=== PATIENT | female | born 1990 | race Caucasian/White ===

== ENCOUNTER 2024-04-02 09:11 | Outpatient (AMB) | payer OTHER, SELFPAY ==
--- NOTE | 2024-04-02 09:14 | MHC.PC.OV ---
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 Intake Note: new patient to [facility] Scanning Coordinator Required: No Allergies No Known Allergies Allergy (Verified 04/02/24 09:15) Tobacco use date assessed: 04/02/24 Dental Screening Dental Screen Date: 04/02/24 Did you have a dental visit in the last 12 months?: Yes Did you have a dental problem in the last 6 months where you did not have access to dental care?: No Was dental information given to patient?: Patient has dentist HPI HPI Comments History of Present Illness Details This is a 33-year-old female with a past medical history of chronic pain, chronic fatigue, migraine headaches, stress and obesity presenting to [facility]. She transferred from [facility] primary care where she saw Dr. Barragan. Her records have not been transferred yet. The patient's primary concern today is chronic pain and chronic fatigue. This began 6 years ago. She went to the [facility] treatment center a couple of years ago. She reports that some of her lab evaluation there was abnormal, but it was not followed up on, and they never made a diagnosis. She would like a referral to Rheumatology for a 2nd opinion. Patient recalls that 1 of the abnormal tests was an elevated white blood cell count. The patient says the intensity of her pain fluctuates, but she is in some discomfort every day. It affects her back and her arms and her legs. She has rare tingling associated with this in her upper back. She sees a chiropractor every month which helps somewhat. When asked about weakness in her extremities she said that she does not do the dishes anymore because she broke a lof of dishes and dropped them. She says this does not happen frequently however. 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 She has a history of chronic headaches and migraines. She is followed at [facility]. She was receiving Botox for migraines which was very effective, but due to recent financial changes she has not been getting them. She also has to meet with a new neurologist because her neurologist left the practice. She is prescribed rizatriptan and Aleve as needed which is effective to abort migraines. She endorses transient blurry vision that occurs sometimes with migraines. Patient says stress and sleep most likely are factoring into some of her symptoms. She is under a lot of stress. She sees a therapist monthly. 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 Her has been out of work for the past 6 months. She says that even when she sleeps 6-8 hours, she always feels tired. She also reports snoring. Denies witnessed apneic episodes. She has a history of asthma which was more prevalent as a child. She received allergy injections now and uses albuterol as needed. She carries an EpiPen because she has a history of a poultry allergy, but she outgrew it. She is a nonsmoker. She drinks a couple of alcoholic beverages per year. No illicit drug use. She has had a history of low vitamin-D. Past treatments include duloxetine in 2017 which made her feel like a zombie. Patient's father has CMT. No known fam hx of MS. ROS: Constitutional: No unexplained weight loss, fever, chills or night sweats. Eyes: No vision changes, double vision, eye pain, eye redness, eye discharge. Respiratory: No shortness of breath, cough or sputum production. Cardiovascular: No chest pain, chest pressure or chest discomfort. No palpitations or pedal edema. Gastrointestinal: No anorexia, nausea, vomiting or diarrhea. No abdominal pain or blood in stool. Neurologic: No memory loss, blackouts, seizures. See HPI Musculoskeletal: see HPI Hematologic/Lymphatics: No bleeding or bruising. No painful lymph nodes. Skin: No rash Endocrine: No cold or heat intolerance. No polyuria or polydipsia. Psychiatric: No SI/HI. Physical exam: Constitutional: Alert, in no distress. Eyes: Pupils are equal, round and reactive to light. Extraocular muscles intact. Neck: Supple, Full range of motion. No lymphadenopathy. No palpable thyroid masses. Respiratory: Clear to auscultation. Cardiovascular: S1 S2 regular. No murmurs Gastrointestinal: Abdomen soft, non-tender, non-distended. Normal bowel sounds. No palpable masses. Neurologic:?Alert and oriented x 3, no focal deficits observed, CN 2-12 intact, [id number] normal, sensation equal and symmetric, strength UE and LE 5/5 bilaterally, reflexes equal and symmetric.? Normal gait.? Patient able to heel walk, toe walk and walk heel-to-toe across the floor.? No pronator drift.? Negative Romberg. Skin: No rashes Musculoskeletal: No gross deformities. Normal range of motion. Extremities: Warm and well perfused. No clubbing, cyanosis or edema. 3+ peripheral pulses bilaterally. Psychiatric: Normal mood and affect [facility] Medical History (Updated 04/02/24 @ 13:45 by STEPHAN Torres) Screening for cardiovascular condition Snoring Anxiety Chronic fatigue Non-restorative sleep Chronic pain Migraines IBS (irritable bowel syndrome) Asthma Anxiety and depression Diverticulosis Surgical History (Updated 04/02/24 @ 09:23 by Zaid Franco MA) History of removal of cyst Family History (Updated 04/02/24 @ 09:23 by Zaid Franco MA) Father Mental health disorder Diabetes Hypertension High cholesterol Cardiovascular disease Charcot-Alexus disease Paternal Uncle Substance abuse Cancer Paternal Grandmother Cancer Paternal Grandfather Cancer Paternal Aunt Cancer Sister Diabetes Hypertension Social History (Updated 04/02/24 @ 09:20 by Zaid Franco MA) Household Members: Spouse Both parents involved: No Caregiver staying overnight: No Housing: House Are you a primary physician assistant primary care to a significant other at home: No Do you presently have visiting nurse or other home services: No 75 years or older and lives alone: No Alcohol intake: current Alcohol intake frequency: a few times a month Patient Tobacco Use Status: Never used Tobacco e-Cigarette/Vaping Use: Never Used Second Hand Smoke Exposure: No Current occupational status: employed Current occupation: director of marketing [employer] Cognitive needs: No Hearing needs: No Vision needs: Yes (wear glasses) Questionnaire PHQ-9 Over the last 2 weeks, how often have you been bothered by any of the following problems? 1. Little interest or pleasure in doing things: not at all 2. Feeling down, depressed, or hopeless: several days 3. Trouble falling or staying asleep, or sleeping too much: several days 4. Feeling tired or having little energy: nearly every day 5. Poor appetite or overeating: not at all 6. Feeling bad about yourself - or that you are a failure or have let yourself or your family down: not at all 7. Trouble concentrating on things, such as reading the newspaper or watching television: not at all 8. Moving or speaking so slowly that other people could have noticed. Or the opposite - being so fidgety or restless that you have been moving around a lot more than usual: not at all 9. Thoughts that you would be better off or of hurting yourself in some way: not at all Total score: 5 16336 - PHQ-9 Billing: Yes Source: Developed by Drs. Omid Polo, Yvette Dickson, Bruce Leon and colleagues, with an educational kenan from [employer]. Thrive Questionnaire Date Thrive assessed: 04/02/24 I am a: Patient What is your living situation today?: I have a steady place to live Within the past 12 months, did the food you bought not last and you didn't have the money to get more?: Never true Within the past 12 months, did you worry whether your food would run out before you got money to buy more?: Never true Do you have trouble paying for medicines?: I choose not to answer this question Do you have trouble getting transportation to medical appointments?: No Do you have trouble paying your heating and electricity bill?: No Do you have trouble taking care of your child, family member or friend?: No Do you have trouble with day-to-day activities such as bathing, preparing meals, shopping, managing finances, etc.?: No Are you currently unemployed and looking for a job?: No Are you interested in more education?: No Please select the resources that you would like help with: None Currently or been in a relationship where the following occur: No concerns reported THRIVE Score: 0 AUDIT C Alcohol Use Questionnaire (AUDIT-C) 1. How often do you have a drink containing alcohol?: Monthly or less 2. How many drinks containing alcohol do you have on a typical day when you are drinking?: 1 or 2 3. How often do you have six or more drinks on one occasion?: Never Total Score: 1 RADHA-7 AMB Questionnaire RADHA-7 Date RADHA - 7 assessed: 04/02/24 Feeling nervous, anxious, or on edge: 1 = Several days Not being able to stop or control worryin = Several days Worrying too much about different things: 1 = Several days Trouble relaxin = Several days Being so restless that it is hard to sit still: 1 = Several days Becoming easily annoyed or irritable: 1 = Several days Feeling afraid as if something awful might happen: 1 = Several days Total RADHA-7 score (0-4 normal; 5-9 mild; 10-14 moderate; 15-21 severe): 7 Source: Developed by Drs. Omid Polo, Yvette Dickson, Bruce Leon and colleagues, with an educational kenan from [employer]. RADHA-7 Assessment Billing RADHA-7 Assessment Tool: RADHA-7 Assessment 64095 Physical exam (Primary Care) Vital Signs: Last Vital Signs Temp 97.7 F 04/02/24 09:24 Pulse 90 04/02/24 09:24 Resp 13 04/02/24 09:24 BP 136/73 04/02/24 09:24 Pulse Ox 98 04/02/24 09:24 Oxygen Delivery Method Room Air 04/02/24 09:24 BMI result Body Mass Index 39.5 Tobacco/Smoking Status: Tobacco use Status Tobacco use date assessed 04/02/24 04/02/24 09:27 Patient Tobacco Use Status Never used Tobacco 04/02/24 09:27 e-Cigarette/Vaping Use Never Used 04/02/24 09:27 PHQ-9: PHQ-9 Score PHQ-9: Total score 5 04/02/24 09:34 Thrive Assessment: Date of Thrive Assessment Date Thrive assessed 04/02/24 04/02/24 09:16 Currently or been in a relationship where the following occur: No concerns reported Coding Level of Care Code New Pt Level 5 (95495) Complex EM visit Add On G2211 Diagnoses Chronic pain G89.29 Non-restorative sleep G47.8 Chronic fatigue R53.82 Anxiety F41.9 Asthma J45.909 Migraines G43.909 Additional Codes RADHA-7 Assessment Billing - RADHA-7 Assessment Tool: RADAH-7 Assessment 34091 ([id number]) PHQ-9 - 95875 - PHQ-9 Billing: Yes ([id number]) Time Spent (min) 65 Comment Direct patient care and completing documentation Assessment & Plan Assessment & Plan (1) Chronic pain: Code(s): G89.29 - Other chronic pain Category: Medical Plan: There is a long differential which includes fibromyalgia, SLE, osteoarthritis, Lyme. Labs ordered today. Referred to Dermatology at [facility]. (2) Non-restorative sleep: Code(s): G47.8 - Other sleep disorders Category: Medical Plan: Sleep study ordered. (3) Chronic fatigue: Code(s): R53.82 - Chronic fatigue, unspecified Category: Medical Plan: We discussed there is a long differential. She definitely needs a sleep study given non restorative sleep, snoring, chronic fatigue and chronic headaches. This is ordered. I will also refer her to Rheumatology at [facility] for a 2nd opinion and we ordered extensive labs today. Proper nutrition, exercise and treatment of underlying anxiety and stress all important. I will request the records from neuroimaging at [facility]. We also discussed MS is on the differential. She is going to have an appointment with a new neurologist, I encouraged her to bring up all of the symptoms. I also think she should have an MRI if this is not in the records from [facility]. She wanted to hold off on ordering it for now. (4) Anxiety: Code(s): F41.9 - Anxiety disorder, unspecified Category: Medical Plan: Patient is seeing a therapist. We discussed medications for anxiety, and we will discuss this further at follow up. She is not completely opposed but she is concerned about side effects because of the experience with Cymbalta. (5) Asthma: Code(s): J45.909 - Unspecified asthma, uncomplicated Category: Medical Plan: Continue albuterol as needed. Followed by Allergy and immunology. (6) Migraines: Code(s): G43.909 - Migraine, unspecified, not intractable, without status migrainosus Category: Medical Plan: Migraine prevention reviewed. She has rizatriptan and Aleve as needed for migraines. She is going to follow up with a new neurologist to discuss alternatives of Botox. Orders: Orders RT home sleep study Today G47.8 - Other sleep disorders, R06.83 - Snoring, R53.82 - Chronic fatigue, unspecified UA w Microscopic Today F41.9 - Anxiety disorder, unspecified, G43.909 - Migraine, unspecified, not intractable, without status migrainosus, G47.8 - Other sleep disorders, G89.29 - Other chronic pain, R06.83 - Snoring, R39.9 - Unspecified symptoms and signs involving the genitourinary system, R53.82 - Chronic fatigue, unspecified Vitamin D 25-OH (D2 and D3) Today F41.9 - Anxiety disorder, unspecified, G43.909 - Migraine, unspecified, not intractable, without status migrainosus, G47.8 - Other sleep disorders, G89.29 - Other chronic pain, M85.80 - Other specified disorders of bone density and structure, unspecified site, R06.83 - Snoring, R53.82 - Chronic fatigue, unspecified TSH reflex Free T4 Today F41.9 - Anxiety disorder, unspecified, G43.909 - Migraine, unspecified, not intractable, without status migrainosus, G47.8 - Other sleep disorders, G89.29 - Other chronic pain, R06.83 - Snoring, R53.82 - Chronic fatigue, unspecified Magnesium Today F41.9 - Anxiety disorder, unspecified, G43.909 - Migraine, unspecified, not intractable, without status migrainosus, G47.8 - Other sleep disorders, G89.29 - Other chronic pain, R06.83 - Snoring, R53.82 - Chronic fatigue, unspecified IRON PROFILE Today F41.9 - Anxiety disorder, unspecified, G43.909 - Migraine, unspecified, not intractable, without status migrainosus, G47.8 - Other sleep disorders, G89.29 - Other chronic pain, R06.83 - Snoring, R53.82 - Chronic fatigue, unspecified Cortisol Random Today F41.9 - Anxiety disorder, unspecified, G43.909 - Migraine, unspecified, not intractable, without status migrainosus, G47.8 - Other sleep disorders, G89.29 - Other chronic pain, R06.83 - Snoring, R53.82 - Chronic fatigue, unspecified Lyme IgG/IgM w/reflex to WB Today F41.9 - Anxiety disorder, unspecified, G43.909 - Migraine, unspecified, not intractable, without status migrainosus, G47.8 - Other sleep disorders, G89.29 - Other chronic pain, R06.83 - Snoring, R53.82 - Chronic fatigue, unspecified C Reactive Protein Today F41.9 - Anxiety disorder, unspecified, G43.909 - Migraine, unspecified, not intractable, without status migrainosus, G47.8 - Other sleep disorders, G89.29 - Other chronic pain, R06.83 - Snoring, R53.82 - Chronic fatigue, unspecified Vitamin B12 and Folate Today F41.9 - Anxiety disorder, unspecified, G43.909 - Migraine, unspecified, not intractable, without status migrainosus, G47.8 - Other sleep disorders, G89.29 - Other chronic pain, R06.83 - Snoring, R53.82 - Chronic fatigue, unspecified Lipid Panel Today F41.9 - Anxiety disorder, unspecified, G43.909 - Migraine, unspecified, not intractable, without status migrainosus, G47.8 - Other sleep disorders, G89.29 - Other chronic pain, R06.83 - Snoring, R53.82 - Chronic fatigue, unspecified, Z13.6 - Encounter for screening for cardiovascular disorders Comprehensive Met. Panel Today F41.9 - Anxiety disorder, unspecified, G43.909 - Migraine, unspecified, not intractable, without status migrainosus, G47.8 - Other sleep disorders, G89.29 - Other chronic pain, R06.83 - Snoring, R53.82 - Chronic fatigue, unspecified Complete Blood Count Auto Diff Today F41.9 - Anxiety disorder, unspecified, G43.909 - Migraine, unspecified, not intractable, without status migrainosus, G47.8 - Other sleep disorders, G89.29 - Other chronic pain, R06.83 - Snoring, R53.82 - Chronic fatigue, unspecified Urine Culture Today F41.9 - Anxiety disorder, unspecified, G43.909 - Migraine, unspecified, not intractable, without status migrainosus, G47.8 - Other sleep disorders, G89.29 - Other chronic pain, R06.83 - Snoring, R39.9 - Unspecified symptoms and signs involving the genitourinary system, R53.82 - Chronic fatigue, unspecified Ferritin Today F41.9 - Anxiety disorder, unspecified, G43.909 - Migraine, unspecified, not intractable, without status migrainosus, G47.8 - Other sleep disorders, G89.29 - Other chronic pain, R06.83 - Snoring, R53.82 - Chronic fatigue, unspecified BRIGHT Reflex Titer and Pattern Today F41.9 - Anxiety disorder, unspecified, G43.909 - Migraine, unspecified, not intractable, without status migrainosus, G47.8 - Other sleep disorders, G89.29 - Other chronic pain, R06.83 - Snoring, R53.82 - Chronic fatigue, unspecified Rheumatoid Factor Today F41.9 - Anxiety disorder, unspecified, G43.909 - Migraine, unspecified, not intractable, without status migrainosus, G47.8 - Other sleep disorders, G89.29 - Other chronic pain, R06.83 - Snoring, R53.82 - Chronic fatigue, unspecified Referrals Rheumatology Referral G89.29 - Other chronic pain, R53.82 - Chronic fatigue, unspecified
[2024-04-02 09:24] VITALS: BP 136/73; PULSE 90; RESP 13; TEMP 36.5; O2SAT 98; BMI 39.5
--- OUTSIDE RECORDS SUMMARY | 2024-04-02 12:14 | XMS_ITS | Clinical Summary ---
Author Organization [facility] Address [address] [place] [address] Care Team Providers Care Senior Dentist Name Role Phone Unavailable Primary Care Provider Unavailabl e Social History Tobacco Use Types Packs/Day Years Used Date Smoking Tobacco: Never Assessed Sex and Gender Information Value Date Recorded Sex Assigned at Not on file Gender Identity Not on file Sexual Orientation Not on file Plan of Treatment Health Maintenance Due Date Last Done Comments DTaP,Tdap,and Td Vaccines (1 - Tdap) 10/19/2010 Hepatitis B Vaccines (1 of 3 - 19+ 3-dose series) 10/19/2010 Cervical Cancer Screening: P ap Smear 10/19/2012 Depression Screening 03/28/2023 HIV Screening 03/28/2023 Hepatitis C Screening 03/28/2023 Social Influencers of Health Screening 03/28/2023 COVID-19 Vaccine ( - 2023-2 5 season) 2023 Influenza Vaccine (#1) 2023 HIB Vaccines Aged Out No longer eligi ble based on patient's age to complete this topic HPV Vaccines Aged Out No longer eligi ble based on patient's age to complete this topic Hepatitis A Vaccines Aged Out No long er eligible based on patient's age to complete this topic IPV Vaccines Aged Out No longer eligi ble based on patient's age to complete this topic MMR Vaccines Aged Out No longer eligi ble based on patient's age to complete this topic Meningococcal ACWY Vaccine Aged Out N o longer eligible based on patient's age to complete this topic Pneumococcal Vaccine: Pediat rics (0 to 5 Years) and At-Risk Patients (6 to 64 Years) Aged Out No longer eligible b ased on patient's age to complete this topic RSV Immunization Patients Un mark 20 months Aged Out No longer eligible b ased on patient's age to complete this topic Varicella Vaccines Aged Out No longer eligible based on patient's age to complete this topic
== END 2024-04-02 09:56 | disposition home or self-care (01) ==
PROVIDERS: PCP Physician Assistant Medical; Visit Provider Physician Assistant Medical
DX: G89.29 Other chronic pain (principal); G47.8 Other sleep disorders; R53.82 Chronic fatigue, unspecified; F41.9 Anxiety disorder, unspecified; J45.909 Unspecified asthma, uncomplicated; G43.909 Migraine, unspecified, not intractable, without status migrainosus

== ENCOUNTER → 2024-04-02 09:11 | Outpatient (BNVA) | payer OTHER, SELFPAY | PROVIDERS: PCP Physician Assistant Medical; Visit Provider Physician Assistant Medical | DX: G89.29 Other chronic pain (principal); G47.8 Other sleep disorders; R53.82 Chronic fatigue, unspecified; F41.9 Anxiety disorder, unspecified; J45.909 Unspecified asthma, uncomplicated; G43.909 Migraine, unspecified, not intractable, without status migrainosus | CPT/HCPCS: 96127 ==

== ENCOUNTER 2024-04-10 10:46 | Outpatient (REF) | payer OTHER, SELFPAY ==
[2024-04-10 11:14] LABS: MANUAL DIFF FLAG NO
[2024-04-10 11:35] LABS: Basophils Absolute Auto 0.1 X10*3/uL (0.0-0.2); Basophils Percent Auto 0.7 % (0-2); Eosinophils Absolute Auto 0.2 X10*3/uL (0.0-0.4); Eosinophils Percent Auto 1.8 % (0-4); Hematocrit 38.7 % (37.0-47.0); Hemoglobin 12.7 g/dl (12.0-16.0); Imm Gran Abs Auto 0.05 X10*3/uL (0.00-0.03); Imm Gran Pct Auto 0.5 % (0.0-0.4); Lymphocytes Absolute Auto 2.4 X10*3/uL (1.2-4.9); Lymphocytes Percent Auto 25.7 % (20-40); Mean Corpuscular HGB Conc 32.8 g/dl (31.0-35.0); Mean Corpuscular Hemoglobin 29.5 pg (27.0-33.0); Mean Corpuscular Volume 89.8 fL (80.0-98.0); Mean Platelet Volume 9.2 fL (9.4-12.3); Monocytes Absolute Auto 0.7 X10*3/uL (0.1-1.2); Monocytes Percent Auto 6.9 % (2-11); Neutrophils Absolute Auto 6.1 x10*3/uL (2.0-8.3); Neutrophils Percent Auto 64.4 % (45-73); Platelet Count 447 X10*3/uL (160-400); Red Blood Count 4.31 X10*6/uL (4.20-5.50); Red Cell Distribution Width 12.1 % (11.0-16.0); White Blood Count 9.5 X10*3/uL (4.8-10.8)
--- OUTSIDE RECORDS SUMMARY | 2024-04-10 11:52 | XMS_ITS | Data Portability ---
Author Organization [facility] [employer] Rated People Address [address] [place] [address] Care Team Providers Care Development Specialist Name Role Phone ERIC LISA Primary Care Provider Assessment Encounter Date Assessment Date Assessment LastModified by Organization Details LastModified Time 01/22/2019 01/22/2019 X-rays three views of the right wrist show no fractures dislocations. Minimal degenerative changes were seen. Assessment: De Quervain tenosynovitis right wrist. Some carpal tunnel syndrome. Plan: We will try her with a brace thumb spica. We are going to see her back in the office in 6 weeks. We injected her 1st dorsal compartment today. She tolerated this well. We are going to have her do some therapy. We will re-evaluate her when she returns. west Not available 01/22/2019 08:39:04 03/05/2019 03/05/2019 assessment: Good response to nonoperative treatment for de Quervain tenosynovitis. Plan: We're going to have her continue with home exercise program. We'll have her use the splint if her pain returns. She is going to follow up if her pain returns. At this point we discharged back to normal activities. west Not available 03/05/2019 08:43:18 Plan of Treatment Reminders Order Date Submit Date Provider Last Modified By Organization Details Last Modified Time Details Appointments None recorded. Lab None recorded. Referral physical therapist referral 2018 west Not available 9 17:48:06 Procedures None recorded. Surgeries None recorded. Imaging XR, hand, 3 or more view - room [address] [facility] (Imaging [facility]), [address], [address], [place], [address], 9 17:48:06 Medication Orders None recorded. Patient TargetsNo targets recorded. Patient InstructionsNo instructions recorded. Reason for Referral Physical Therapist Referral for Radial styloid tenosynovitis Referring Physician: Vern Nuno, Orthopedic Surgery, Encounter Date: 01/22/2019 Results Created Date Observation Date Name Description Value Unit Range Abnormal Flag Note LastModifiedBy Organization Detail LastModifiedTime 01/23/2001/22/2019 XR, hand, 3 or more view http:/ [email or web address] [id number]:3582 ?Encry pted=s hAaTro YD8dLq bEUv6g %2BXZw aYqtaq 0bqfl% 2Fg9IQ a4ajBk vP9nXo QUaueC m3YtLR FvZlgJ JJ8mAn HZtai3 5p9392 AC0Kpb X2FUaa uKicnq c0P [facility] (Imaging Center) [address], [place], [address], 01/22/2019 07:42:23 Result Notes None recorded. Problems Name Problem SNOMED Code Status Onset Date Resolution Date Notes Provider Name and Address Organization Details Recorded Time Carpal tunnel syndrome 88806959 Active 2018 Vern Nuno MD [address], [address], [facility] 9 08:40:13 Radial styloid tenosynovitis 95530785 Active 2018 Vern Nuno MD [address], [address], [facility] 9 08:40:17 Problem Notes None recorded. Procedures Surgical History Date Name Laterality Status Provider Name and Address Organization Details Recorded Time 01/23/20 19 Inj Wrist/Elbow Right Betamethasone 86946, J0702, J2001 completed Vern Nuno MD [address] [place], [address], [place] - [facility] 01/22/2019 08:39:40 Imaging Results Imaging Date Name Status LastModified by Organiz ation Details LastModified Time 01/22/2019 XR, hand, 3 or more view completed INTERFACE [facility] (Imaging Center) [address], [place], [address], 01/22/2019 07:42:23 Procedure Notes None recorded. Medical Equipment None Reported. Allergies Allergen ID Allergen Name Allergen Category Reaction Reaction Severity Criticality Documentation Date Start Date Code Code System Note Provider Name and Address Organization Details Recorded Time 90057 sumatript an medicatio n Not available Not available Not available 01/22/2019 99486 RxNorm Not Available Not Available Not Available 87493 gabapenti n medicatio n Not available Not available Not available 01/22/2019 41157 RxNorm Not Available Not Available Not Available Medications Name Sig Start Date Stop Date Status Note LastModified by Organization Details LastModified Time amoxicillin 500 mg capsule 03/05 completed Not Available Not Available Not Available cetirizine 10 mg tablet active Not Available Not Available No t Available ranitidine 300 mg tablet active Not Available Not Available No t Available triamcinolone acetonide 0.1 % topical cream 03/05 completed Not Available Not Available Not Available triamcinolone acetonide 0.025 % topical cream 03/05 completed Not Available Not Available Not Available meclizine 25 mg tablet 03/05 completed Not Available Not Available Not Available gabapentin 100 mg capsule active Not Available Not Available N ot Available epinephrine 0.3 mg/0.3 mL injection, auto-injector active Not Available Not Availabl e Not Available topiramate 100 mg tablet active Not Available Not Available No t Available Sprintec (28) 0.25 mg-35 mcg tablet active Not Available Not Available Not Available Suprep Bowel Prep Kit 17.5 gram-3.13 gram-1.6 gram oral solution 03/05 completed Not Available Not Available Not Available Vitals Date Recorded Body height Body mass index (BMI) Body weight Provider Name and Address Organization Details Last Updated DateTime 01/22/2019 167.64 cm 34.7 kg/m2 47394.36 g Raissa Woodard [facility] 01/22/2019 07:44:51 Date Recorded Body height Body mass index (BMI) Body weight Provider Name and Address Organization Details Last Updated DateTime 03/05/2019 167.64 cm 34.7 kg/m2 06033.36 g Rizwana Rust [facility] 03/05/2019 08:24:02 Social History Question Answer Notes LastModified by Organizat ion Details LastModified Time Tobacco Smoking Status Never Smoker Rizwana quevedo [facility] 01/22/2019 08:19:52 Do You Or Have You Ever Used E-cigarettes Or Vape? Never Used Electronic Cigarettes Information not available 01/22/2019 How Much Alcohol Do You Drink In A Week? None Information not available 03/05/2019 Do You Use Recreational Drugs? No Information not available 01/22/2019 Who Do You Live With? 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 No Information not available 01/22/2019 In The Last 30 Days Have You Been Prescribed A Benzodiazepine? No Information not available 01/22/2019 Do You Have A Prior History Of Opioid Misuse Disorder? No Information not available 01/22/2019 Do You Live In A Single Or Multi Level Home? Single Level Home Information not available 01/22/2019 If Patient Was Self Referral, How Did They Hear About Us? I've Been A Patient In The Past Information not available 01/22/2019 Do You Or Have You Ever Used Smokeless Tobacco? Never Used Smokeless Tobacco Information not available 01/22/2019 How Much Tobacco Do You Smoke? No Information not available 01/22/2019 Sex: Unknown Functional Status None recorded. Mental Status None recorded. Family History Relationship Description Onset Age of this Age Resolved Age Notes LastModified by Organization Details LastModified Time Father No current problems or disability afeole Not available 01/22 08:19:40 Mother No current problems or disability afeole Not available 01/22 08:19:40 Medical History Condition Response Anxiety/Depression Y Asthma Y Gynecological HistoryNo gynecological history recorded. Obstetrics History GPAL:G 0 P 0 0 0 0 Past Encounters Encounter ID Performer Location Encounter Start Date Encounter Closed Date Diagnosis/Indication Diagnosis SNOMED-CT Code Diagnosis ICD10 Code Diagnosis Note [id number] Vern Nuno MD [place] [address] [place] [address] 01/22/2019 07:02:07 01/22/2019 08:20:25 Pain in right hand 5732469023 77639 M79.641 Radial sty loid tenosynovitis 98653094 M65.4 Carpal suyapa flaquita syndrome 86852070 G56.01 [id number] Vern Nuno MD [place] [facility] [address] [place] [address] 03/05/2019 08:03:39 03/05/2019 08:39:26 Radial styloid tenosynovitis 85735839 M65.4 Health Concerns Section Related Observation LastModified by Organization Detai ls LastModified Time None Recorded Concern Status LastModified by Organization Details LastModified Time None Recorded Advance Directives Directive None Recorded Payers Encounter Date Sequence Insurance Name Policy Number Policy Abrams Covered Member ID Abrams Member ID Guarantor Name 01/22/2019 1 [facility] (MEDICAID REPLACEMENT - HMO) RODOSARAHYShahram Sy [id number] Merle Melisa Sy 03/05/2019 1 [facility] (MEDICAID REPLACEMENT - HMO) RODOSARAHYShahram Merle Sy [id number] Merle Sy Notes Date Note Type Note Provider Name and Address Organization Details Recorded Time 01/22/2019 text/html New-pt Right hand. XRAY DONE TODAY- 01/22/19 The patient presents with complaints of {{right* left bilat eral}} {{neck shoulder elb ow wrist hand* low back hip knee ankle }}, which has been ongoing for a few {{days weeks months years*}}. The patient states that the pain is {{mild moderate* se brandon}} and is located {{anterior* posteri digna anterolaterall y medially laterall y}}. Merle states she has noticed her hand locking, she is wearing a brace for two weeks. She reports some soreness. Having trouble writing or typing at work without having any pain. Merle has apply ice and heat with no relief. The patient states that she is having pain along the radial aspect of her wrist. It is in the area of the 1st dorsal compartment. It is worse with activity. She also complains of numbness and tingling in her thumb and index mostly. She is unsure whether it is on the volar or dorsal aspect of these fingers. She says that sometimes she feels like it she drops things. It is worse after she uses her hand a lot. She says over the past few days it has gotten to the point where she is having trouble sleeping. She has trouble with activities of daily living. She wants know what more can be done for this. She has had no treatment. Vern Nuno MD [address], [place], [address], [facility] 01/22/2019 08:40:30 03/05/2019 text/html Merle Camp present s today for a follow up on her De Quervain tenosynovitis right wrist. She states that she has been feeling, some stiffness pains in the wrist when she is typing for a long time. She does have her wrist lacer and she is wearing it to make her feel better. Patient states that her wrist is doing much better. The brace helps her a lot. She has been weaning herself off the brace recently. She doesn't feel like she needs a brace at all anymore. She is here for follow-up. Vern Nuno MD [address], [place], [address], [facility] 03/05/2019 08:43:31 OBGyn Episode No OBEpisode recorded.
--- OUTSIDE RECORDS SUMMARY | 2024-04-10 11:52 | XMS_ITS | Clinical Summary ---
Author Organization [facility] Address [address] [place] [address] Care Team Providers Care Cooperer Name Role Phone Unavailable Primary Care Provider [...]
[2024-04-10 12:14] LABS: Rheumatoid Factor < 13.0 IU/mL (<15.0)
[2024-04-10 12:24] LABS: Cortisol Random 8.1 ug/dL
[2024-04-10 12:25] LABS: Alanine Aminotransferase 17 U/L (0-31); Albumin Level 4.2 g/dL (3.5-5.0); Alkaline Phosphatase 72 U/L (39-117); Anion Gap 8 (12-20); Aspartate Amino Transferase 20 U/L (5-31); Bilirubin Total 0.4 mg/dL (0.0-1.0); Blood Urea Nitrogen 10 mg/dL (9-16); C Reactive Protein 0.78 mg/dL (< or = 0.50); Carbon Dioxide 22 mmol/L (22-29); Chloride 110 mmol/L (96-108); Cholesterol 176 mg/dL (<200); Estimated Glomerular Filt Rate > 60; Glucose Random 85 mg/dL (60-115); HDL Cholesterol 46 mg/dL (>40); Iron 78 mcg/dL (30-160); LDL Cholesterol Calculated 116 mg/dL (<100); Magnesium 2.2 mg/dL (1.6-2.6); Percent Iron Saturation 27 % (15-50); Potassium 3.8 mmol/L (3.3-5.1); Sodium 136 mmol/L (135-145); Total Iron Binding Capacity 290 mcg/dL (228-428); Total Protein 7.6 g/dL (6.5-8.0); Triglycerides 70 mg/dL (<150); Unsaturated Iron Binding 212 ug/dL
[2024-04-10 12:26] LABS: Appearance Urine Clear; Color Urine Yellow; Glucose Urine UA Negative (Negative); Leukocyte Esterase Urine Negative (Negative); Nitrite Urine Negative (Negative); PH >= 9.0 (5.0-9.0); UMIC TRIGGER UA YES; Urine Blood Trace (Negative); Urine Ketones Negative (Negative); Urine Protein Trace mg/dL (Neg-Trace)
[2024-04-10 12:29] LABS: Ferritin 28 ng/mL (10-122); TSH reflex Free T4 0.76 uIU/mL (0.32-4.0)
[2024-04-10 12:30] LABS: Bacteria Urine None Seen (None Seen); Hyaline Casts Urine 0-2 /LPF (0-2); Squamous Epithelial Cell Urine 0-2 /HPF (0-2); WBC Urine 0-5 /HPF (0-5)
[2024-04-10 12:36] LABS: Folate 13.6 ng/mL (> or = 4.0); Vitamin B12 669 pg/mL (200-900)
[2024-04-13 13:53] LABS: Lyme Abs Screen <0.90 index
[2024-04-15 16:34] LABS: Vitamin D 25-OH, D2 <4 ng/mL; Vitamin D 25-OH, D3 37 ng/mL; Vitamin D 25-OH, Total 37 ng/mL (30-100)
[2024-04-16 13:49] LABS: Anti Nuclear Antibody Screen POSITIVE (NEGATIVE)
== END 2024-04-10 10:47 | disposition home or self-care (01) ==
LOC: HO.LAB 10:46
PROVIDERS: PCP Physician Assistant Medical; Visit Provider Physician Assistant Medical
DX: M85.80 Other specified disorders of bone density and structure, unspecified site (principal); R06.83 Snoring; F41.9 Anxiety disorder, unspecified; R53.82 Chronic fatigue, unspecified; G47.8 Other sleep disorders; G89.29 Other chronic pain; G43.909 Migraine, unspecified, not intractable, without status migrainosus; Z13.6 Encounter for screening for cardiovascular disorders; R39.9 Unspecified symptoms and signs involving the genitourinary system
CPT/HCPCS: 36415; 80053; 80061; 81001; 82306; 82533; 82607; 82728; 82746; 83540; 83735; 84443; 85025; 86038; 86039; 86140; 86431; 86617; 86618; 87086

== ENCOUNTER 2024-07-23 15:01 | Outpatient (AMB) | payer OTHER, SELFPAY ==
--- NOTE | 2024-07-23 15:14 | A.OFFPC_ITS ---
Vital Signs 07/23/24 15:18 Height 5 ft 6 in Weight 241 lb BMI 38.9 BP 112/72 Blood Pressure Location Lt brachial Position Sitting Pulse 83 Pulse Source Pulse Oximeter Temp 98.2 F Temp Source Temporal Artery Scan Pulse Oximetry (%) 98 Oxygen Delivery Method Room Air Intake Visit Reasons: annual physical /med review Intake Note: Merle presents in the office today for her annual physical. Allergies poultry Allergy (Severe, Uncoded 07/23/24 15:45) Anaphylaxis Medication List - Last Reconciled 07/23/24 by STEPHAN Torres norethindrone (contraceptive) (Incassia) 0.35 mg PO DAILY omeprazole 20 mg PO BID sertraline 25 mg PO DAILY Tobacco use date assessed: 07/23/24 Dental Screening Dental Screen Date: 07/23/24 Did you have a dental visit in the last 12 months?: Yes Did you have a dental problem in the last 6 months where you did not have access to dental care?: No Was dental information given to patient?: Patient has dentist HPI HPI Comments 2 History of Present Illness Details This is a 33-year-old female with a past medical history of chronic pain, chronic fatigue, migraine headaches, stress and obesity presenting for a physical exam. Father has Charcot-Alexus Tooth. Patient sees neurology though they don't specialize in this area. Discussed history of breast cancer on paternal side (GM and aunt). Referred to genetic counseling for BRCA and to see if there is testing for CMT or other recommendations. She reported at her initial visit chronic pain and fatigue for the past 6 years. Documented previously: She went to the [facility] treatment center a couple of years ago. She reports that some of her lab evaluation there was abnormal, but it was not followed up on, and they never made a diagnosis. She would like a referral to Rheumatology for a 2nd opinion. Patient recalls that 1 of the abnormal tests was an elevated white blood cell count. The patient says the intensity of her pain fluctuates, but she is in some discomfort every day. It affects her back and her arms and her legs. She has rare tingling associated with this in her upper back. She sees a chiropractor every month which helps somewhat. When asked about weakness in her extremities she said that she does not do the dishes anymore because she broke a lof of dishes and dropped them. She says this does not happen frequently however. 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 Lab evaluation here demonstrated elevated platelet count at [id number], elevated CRP at 0.78 and microscopic hematuria though patient was not on her menstrual period. Patient reported that this was not the 1st time microscopic blood in her urine was mentioned. BRIGHT is also mildly positive 1:320. Lyme screening was negative. Rheumatoid factor negative. Patient has been referred to Rheumatology and instructed to repeat labs, and she bruce do this once her insurance switches in August. She was referred to urology for hematuria.. States she will schedule when insurance changes. She has a history of chronic headaches and migraines. She is followed at [facility]. She was receiving Botox for migraines which was very effective, but due to recent financial changes she has not been getting them. She also has to meet with a new neurologist because her neurologist left the practice. She is prescribed rizatriptan and Aleve as needed which is effective to abort migraines. She endorses transient blurry vision that occurs sometimes with migraines. Anxiety-Prozac caused insomnia but helped. Sertraline + her migraine med caused nausea, dizziness, chills. Decreased Zoloft to 25 mg. She is a nonsmoker. She drinks a couple of alcoholic beverages per year. No illicit drug use. Past treatments include duloxetine in 2017 which made her feel like a zombie. +Phq-9. Sleep study will be scheduled pending her insurance change. She also will repeat her labs then. She will get a tdap vaccine at her pharmacy because she's getting allergy shots tomorrow. ROS: Constitutional: No unexplained weight loss, fever, chills or night sweats. Eyes: No vision changes, double vision, eye pain, eye redness, eye discharge. Respiratory: No shortness of breath, cough or sputum production. Cardiovascular: No chest pain, chest pressure or chest discomfort. No palpitations or pedal edema. Gastrointestinal: No anorexia, nausea, vomiting or diarrhea. No abdominal pain or blood in stool. Neurologic: No memory loss, blackouts, seizures. See HPI Musculoskeletal: see HPI Hematologic/Lymphatics: No bleeding or bruising. No painful lymph nodes. Skin: No rash Endocrine: No cold or heat intolerance. No polyuria or polydipsia. Psychiatric: No SI/HI. Physical exam: Constitutional: Alert, in no distress. Head: Normocephalic. Eyes: Pupils are equal, round and reactive to light. Extraocular muscles intact. Ear, Nose and Throat: Canals clear. TMs normal. Normal nasal mucosa. No nasal discharge. No oral lesions. Neck: Supple, Full range of motion. No lymphadenopathy. No palpable thyroid masses. Respiratory: Clear to auscultation. Cardiovascular: S1 S2 regular. No murmurs. Gastrointestinal: Abdomen soft, non-tender, non-distended. Normal bowel sounds. No palpable masses Neurologic: No focal neurological deficits. Symmetric patellar reflexes. Moves all extremities spontaneously. Sensation intact bilaterally. Skin: No rashes Musculoskeletal: No gross deformities. Normal range of motion. Extremities: Warm and well perfused. No clubbing, cyanosis or edema. intact peripheral pulses bilaterally. Psychiatric: Normal mood and affect [facility] Medical History (Updated 07/23/24 @ 20:45 by STEPHAN Torres) Routine physical examination Family history of Wrbhyox-Qjasj-Felsd disease Family history of breast cancer Positive BRIGHT (antinuclear antibody) Microhematuria Elevated platelet count Screening for cardiovascular condition Snoring Anxiety Chronic fatigue Non-restorative sleep Chronic pain Migraines IBS (irritable bowel syndrome) Asthma Anxiety and depression Diverticulosis Surgical History (Updated 04/02/24 @ 09:23 by Zaid Franco MA) History of removal of cyst Family History Father Mental health disorder Diabetes Hypertension High cholesterol Cardiovascular disease Charcot-Alexus disease Paternal Uncle Substance abuse Cancer Paternal Grandmother Cancer Paternal Grandfather Cancer Paternal Aunt Cancer Sister Diabetes Hypertension Social History (Updated 07/23/24 @ 15:18 by Julianna Velasquez MA) Household Members: Spouse Both parents involved: No Caregiver staying overnight: No Housing: House Are you a primary family day care worker to a significant other at home: No Do you presently have visiting nurse or other home services: No 75 years or older and lives alone: No Alcohol intake: current Alcohol intake frequency: a few times a month Patient Tobacco Use Status: Never used Tobacco e-Cigarette/Vaping Use: Never Used Second Hand Smoke Exposure: No Current occupational status: employed 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 1. Little interest or pleasure in doing things: several days 2. Feeling down, depressed, or hopeless: not at all 3. Trouble falling or staying asleep, or sleeping too much: nearly every day 4. Feeling tired or having little energy: more than half the days 5. Poor appetite or overeating: not at all 6. Feeling bad about yourself - or that you are a failure or have let yourself or your family down: not at all 7. Trouble concentrating on things, such as reading the newspaper or watching television: more than half the days 8. Moving or speaking so slowly that other people could have noticed. Or the opposite - being so fidgety or restless that you have been moving around a lot more than usual: not at all 9. Thoughts that you would be better off or of hurting yourself in some way: not at all Total score: 8 Depression Screening Interpretation: Positive Depression Screening Follow-up: Other (referred to psych) Depression Screening Done: Yes 95393 - PHQ-9 Billing: Yes Source: Developed by Drs. Omid Polo, Yvette Dickson, Bruce Leon and colleagues, with an educational kenan from [employer]. Thrive Questionnaire Date Thrive assessed: 07/23/24 I am a: Patient What is your living situation today?: I have a steady place to live Within the past 12 months, did the food you bought not last and you didn't have the money to get more?: Never true Within the past 12 months, did you worry whether your food would run out before you got money to buy more?: Never true Do you have trouble paying for medicines?: I choose not to answer this question Do you have trouble getting transportation to medical appointments?: No Do you have trouble paying your heating and electricity bill?: No Do you have trouble taking care of your child, family member or friend?: No Do you have trouble with day-to-day activities such as bathing, preparing meals, shopping, managing finances, etc.?: No Are you currently unemployed and looking for a job?: No Are you interested in more education?: No Please select the resources that you would like help with: None Currently or been in a relationship where the following occur: No concerns reported THRIVE Score: 0 AUDIT C Alcohol Use Questionnaire (AUDIT-C) 1. How often do you have a drink containing alcohol?: Monthly or less 2. How many drinks containing alcohol do you have on a typical day when you are drinking?: 1 or 2 3. How often do you have six or more drinks on one occasion?: Never Total Score: 1 Score Reviewed/Action Taken: No RADHA-7 AMB Questionnaire RADHA-7 Date RADHA - 7 assessed: 07/23/24 Feeling nervous, anxious, or on edge: 1 = Several days Not being able to stop or control worryin = Several days Worrying too much about different things: 3 = Nearly every day Trouble relaxin = More than half the days Being so restless that it is hard to sit still: 1 = Several days Becoming easily annoyed or irritable: 1 = Several days Feeling afraid as if something awful might happen: 0 = Not at all Total RADHA-7 score (0-4 normal; 5-9 mild; 10-14 moderate; 15-21 severe): 9 Source: Developed by Drs. Omid Polo, Yvette Dickson, Bruce Leon and colleagues, with an educational kenan from [employer]. RADHA-7 Assessment Billing RADHA-7 Assessment Tool: RADHA-7 Assessment 83813 Physical exam (Primary Care) Vital Signs: Last Vital Signs Temp 98.2 F 07/23/24 15:18 Pulse 83 07/23/24 15:18 BP 112/72 07/23/24 15:18 Pulse Ox 98 07/23/24 15:18 Oxygen Delivery Method Room Air 07/23/24 15:18 BMI result Body Mass Index 38.9 Tobacco/Smoking Status: Tobacco use Status Tobacco use date assessed 07/23/24 07/23/24 15:21 Patient Tobacco Use Status Never used Tobacco 07/23/24 15:18 e-Cigarette/Vaping Use Never Used 07/23/24 15:18 PHQ-9: PHQ-9 Score PHQ-9: Total score 8 07/23/24 16:21 Depression Screening Interpretation: Positive Depression Screening Follow-up: Other (referred to psych) Thrive Assessment: Date of Thrive Assessment Date Thrive assessed 07/23/24 07/23/24 15:16 Currently or been in a relationship where the following occur: No concerns reported Coding Level of Care Code Est Pt Prev Care 18-39y(85361) Diagnoses Chronic pain G89.29 Non-restorative sleep G47.8 Chronic fatigue R53.82 Anxiety F41.9 Migraines G43.909 Snoring R06.83 Routine physical examination Z00.00 Additional Codes RADHA-7 Assessment Billing - RADHA-7 Assessment Tool: RADHA-7 Assessment 19442 ([id number]) PHQ-9 - 48592 - PHQ-9 Billing: Yes ([id number]) Assessment & Plan Assessment & Plan (1) Chronic pain: Code(s): G89.29 - Other chronic pain Category: Medical Plan: There is a long differential which includes fibromyalgia, SLE, osteoarthritis, Lyme. Referred anew. (2) Non-restorative sleep: Code(s): G47.8 - Other sleep disorders Category: Medical Plan: Sleep study ordered. (3) Chronic fatigue: Code(s): R53.82 - Chronic fatigue, unspecified Category: Medical Plan: We discussed there is a long differential. She definitely needs a sleep study given non restorative sleep, snoring, chronic fatigue and chronic headaches. This is ordered. I will also refer her to Rheumatology at [facility] or a 2nd opinion. Proper nutrition, exercise and treatment of underlying anxiety and stress all important. We also discussed MS is on the differential. She is going to have an appoi ntment with a new neurologist, I encouraged her to bring up all of the symptoms. (4) Anxiety: Code(s): F41.9 - Anxiety disorder, unspecified Category: Medical Plan: Patient is seeing a therapist. Reduce Zoloft to 25 mg every other day x 1 week then d/c. Referred to psych. (5) Migraines: Code(s): G43.909 - Migraine, unspecified, not intractable, without status migrainosus Category: Medical Plan: Migraine prevention reviewed. She has rizatriptan and Aleve as needed for migraines. She is going to follow up with a new neurologist to discuss alternatives or Botox. (6) Snoring: Code(s): R06.83 - Snoring Category: Medical (7) Routine physical examination: Code(s): Z00.00 - Encounter for general adult medical examination without abnormal findings Category: Medical Plan: Patient is seen today for a routine physical. As part of this visit we reviewed the following issues, which are considered and essential part of preventative health in this age group: - Breast Cancer screening - Annual Roller Hand exam - Blood pressure screening annually - Cholesterol screening - Osteoporosis prevention including calcium/vitamin D intake, weight bearing exercise & smoking cessation - Nutritional and exercise counseling - Counseling of injury prevention including fire prevention, smoke alarms and seat belt usage - Screening for depression - Education about skin cancer - Recommendations about immunizations - Recommendation of an eye exam - Screening for substance abuse - Genetic cancer risk screening Plan Follow up in 3-4 months. Orders: Referrals Psychiatry Outpatient Consultation Service R06.83 - Snoring Rheumatology Referral R76.8 - Other specified abnormal immunological findings in serum Genetics Referral Z80.3 - Family history of malignant neoplasm of breast, Z82.0 - Family history of epilepsy and other diseases of the nervous system Medications: New epinephrine (EpiPen 2-Erich) for 2 doses 0.3 mg (0.3 mL) IM Q10M PRN 2 ea 3RF anaphylaxis naratriptan take 1 tab at onset of headache; if no relief may repeat 1 tab after at least 4 hrs; max = 2 tabs/24 hrs PO albuterol sulfate 90 mcg/actuation 2 puffs inhalation Q4-6H PRN Discontinued sertraline Discontinued Reason: Doctor's Order 25 mg PO DAILY
[2024-07-23 15:18] VITALS: BP 112/72; PULSE 83; TEMP 36.8; O2SAT 98; BMI 38.9
== END 2024-07-23 16:00 | disposition home or self-care (01) ==
LOC: HO.HMCFM 15:02
PROVIDERS: PCP Physician Assistant Medical; Visit Provider Physician Assistant Medical
DX: G89.29 Other chronic pain (principal); G47.8 Other sleep disorders; R53.82 Chronic fatigue, unspecified; F41.9 Anxiety disorder, unspecified; G43.909 Migraine, unspecified, not intractable, without status migrainosus; R06.83 Snoring; Z00.00 Encounter for general adult medical examination without abnormal findings

== ENCOUNTER → 2024-07-23 15:01 | Outpatient (BNVA) | payer OTHER, SELFPAY | PROVIDERS: PCP Physician Assistant Medical; Visit Provider Physician Assistant Medical | DX: Z00.00 Encounter for general adult medical examination without abnormal findings (principal); R06.83 Snoring; G43.909 Migraine, unspecified, not intractable, without status migrainosus; F41.9 Anxiety disorder, unspecified; R53.82 Chronic fatigue, unspecified; G47.8 Other sleep disorders; G89.29 Other chronic pain; E66.9 Obesity, unspecified; Z68.38 Body mass index [BMI] 38.0-38.9, adult | CPT/HCPCS: 96127 ==

== ENCOUNTER → 2024-10-13 14:52 | Outpatient (REF) | payer OTHER, SELFPAY ==
--- OUTSIDE RECORDS SUMMARY | 2024-10-13 15:43 | XMS_ITS | Clinical Summary ---
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 Tender Name Role Phone Unavailable Primary Care Provider Unavailabl e Social History Tobacco Use Types Packs/Day Years Used Date Smoking Tobacco: Never Assessed Comments Unknown Sex and Gender Information Value Date Recorded Sex Assigned at Not on file Legal Sex Female 8:05 PM EST Gender Identity Not on file Sexual Orientation Not on file Plan of Treatment Health Maintenance Due Date Last Done Comments DTaP,Tdap,and Td Vaccines (1 - Tdap) 10/19/2010 Hepatitis B Vaccines (1 of 3 - 19+ 3-dose series) 10/19/2010 Cervical Cancer Screening: P ap Smear 10/19/2012 HIV Screening 03/28/2023 Hepatitis C Screening 03/28/2023 Social Influencers of Health Screening 03/28/2023 COVID-19 Vaccine ( - 2023-2 5 season) 2023 Depression Screening 03/04/2024 Influenza Vaccine (#1) 2024 HIB Vaccines Aged Out No longer eligi [...] patient's age to complete this topic Meningococcal B Vaccine Aged Out No l onger eligible based on patient's age to complete this topic Pneumococcal Vaccine: Pediat rics (0 to 5 Years) and At-Risk Patients (6 to 49 Years) Aged Out No longer eligible b ased on patient's age to complete this topic RSV Immunization Patients Un mark 20 months Aged Out No longer eligible b ased on patient's age to complete this topic Varicella Vaccines Aged Out No longer eligible based on patient's age to complete this topic
--- OUTSIDE RECORDS SUMMARY | 2024-10-13 15:43 | XMS_ITS | Clinical Summary ---
Author Organization [facility] Address [address] [place] [address] Care Team Providers Care Injection Molding Machine Tender Name Role Phone Ramila Paz [employer] Primary Care Provider [phone] Allergies Active Allergy Reactions Criticality Noted Date Comments Sumatriptan Swelling High 06/26/2017 Medications topiramate (TOPAMAX) 100 MG tablet TAKE 1 TABLET TWICE A DAY 3 12/25/2018 Active cetirizine (ZYRTEC) 10 MG chewable tablet Chew 10 mg. Ac tive norgestimate-et hinyl estradiol (SPRINTEC, 28,) 0.25-35 mg-mcg tablet Take 1 tablet by mouth once daily. Active ALBUTEROL INHL Inhale. Activ e EPINEPHrine (EPIPEN) 0.3 mg/0.3 mL injection Inject 0.3 mg into muscle as directed once. Active Active Problems No known active problems Social History Tobacco Use Types Packs/Day Years Used Date Smoking Tobacco: Never Assessed Cigarettes Comments No Sex and Gender Information Value Date Recorded Sex Assigned at Not on file Legal Sex Female 3:20 PM EDT Gender Identity Not on file Sexual Orientation Not on file Last Filed Vital Signs Vital Sign Reading Time Taken Comments Blood Pressure 114/72 03/16/2019 3:48 PM EST Pulse - - Temperature - - Respiratory Rate - - Oxygen Saturation - - Inhaled Oxygen Concentration - - Weight 97.5 kg (215 lb) 03/16/2019 3:48 PM EST Height 167.6 cm (5' 6 ) 03/16/2019 3:48 PM EST Body Mass Index 34.7 03/16/2019 3:48 PM EST Plan of Treatment [place] [address] Care Teams Injection Molding Machine Tender Relationship Specialty Start Date End Date Ramila Paz NP [address] [place] [phone] PCP - General Internal Medicine 02/03/19
== END ==
LOC: HO.SL 14:52
PROVIDERS: PCP Physician Assistant Medical; Visit Provider Physician Assistant Medical
DX: G47.8 Other sleep disorders (principal); R53.82 Chronic fatigue, unspecified; R06.83 Snoring; R40.0 Somnolence
CPT/HCPCS: 95806

== ENCOUNTER → 2024-10-13 15:07 | Outpatient (BNV) | payer OTHER, SELFPAY | PROVIDERS: PCP Physician Assistant Medical; Visit Provider Internal Medicine | DX: R06.83 Snoring (principal) | CPT/HCPCS: 95806 ==